=== PATIENT | female | born 1960 | race Caucasian/White ===

== ENCOUNTER 2017-07-17 11:37 | Outpatient (CLI) | payer BC ==
--- NOTE | 2017-07-17 12:51 | RAD ---
LEFT FOOT THREE VIEWS: History: Foot pain. Left great toe pain. FINDINGS: Prominent spurring from the posterior calcaneus and mild spurring from the plantar calcaneus. Tarsals otherwise unremarkable. Metatarsals and phalanges are intact. MTP joints are maintained. Mild degene rative change at the first MTP joint. The IP joints are unremarkable. IMPRESSION: No acute abnormality. Chronic findings as described. POS: [facility]
== END 2017-07-17 11:38 | disposition home or self-care (01) ==
LOC: RAD-FRANK 11:37
PROVIDERS: ATTEND Nurse Practitioner Family
DX: S99.922A Unspecified injury of left foot, initial encounter (principal)

== ENCOUNTER 2020-02-21 06:28 | Outpatient (CLI) | payer BC ==
[2020-02-21 11:46] LABS: Hemoglobin 13.7 g/dL (12.0-16.0); Mean Corpuscular HGB CONC 33.3 G/DL (32.0-36.0); Mean Platelet Volume 11.4 fl (7.4-10.4); Platelet Count 299 10x3/uL (130-400); RBC Distribution Width 13.4 % (11.5-14.5); Red Blood Cell (RBC) Count 4.28 10x6/uL (3.90-5.20); White Blood Cell (WBC) Count 5.7 10x3/uL (4.5-11.0)
[2020-02-21 12:33] LABS: Anion Gap 17 mmol/L (10-20); BUN (Urea Nitrogen) 9 mg/dL (9.8-20.1); Calc. Creatinine Clearance 0 mL/min (70-130); Calcium 9.3 mg/dL (7.8-10.44); Carbon Dioxide 26 mmol/L (22-29); Chloride 107 mmol/L (98-107); Glucose 91 mg/dL (70-105); Potassium 4.2 mmol/L (3.5-5.1); Sodium 146 mmol/L (136-145)
--- NOTE | 2020-02-21 16:12 | EKG ---
Test Reason : Blood Pressure : / mmHG Vent. Rate : 075 BPM Atrial Rate : 075 BPM P-R Int : 146 ms QRS Dur : 074 ms QT Int : 378 ms P-R-T Axes : 019 062 037 degrees QTc Int : 422 ms Normal sinus rhythm Low voltage QRS Borderline ECG No previous ECGs available Confirmed by DR. Herrera GOLD ([id number]) on 02/21/2020 4:11:41 PM Referred By: NATHALIA Confirmed By:DR. Herrera GOLD
[2020-02-21 17:12] LABS: SARS-CoV-2 MS2 Positive; SARS-CoV-2 N Gene Negative; SARS-CoV-2 S Gene Negative; SARS-CoV-2 by NAA Not Detected (NotDetected); SARS-CoV-2 orf1ab Negative
== END 2020-02-21 06:29 | disposition home or self-care (01) ==
LOC: LABBT 06:28
PROVIDERS: ATTEND Neurological Surgery
DX: Z01.818 Encounter for other preprocedural examination (principal); Z20.828 Contact with and (suspected) exposure to other viral communicable diseases; M54.16 Radiculopathy, lumbar region
CPT/HCPCS: 80048; 85027; 87635; 93005; 93010; U0003

== ENCOUNTER 2020-02-26 06:04 | Observation (INO) | payer BC ==
[2020-02-25 13:07] VITALS: BMI 35.4
[2020-02-26] MEDS ORDERED: Levofloxacin 500 mg/D5W 100 ml Premix Bag ONE (07:01)
[2020-02-26] MEDS ORDERED: Clindamycin/D5W 900 mg/50 ml Premix Bag ONE ×2 (07:01→15:09)
[2020-02-26] MEDS ORDERED: Midazolam HCl 2 mg/2 ml Vial ONE (07:08)
[2020-02-26] MEDS ORDERED: HYDROmorphone 2 MG/ML VIAL ONE (07:09)
[2020-02-26] MEDS ORDERED: Famotidine/PF 20 mg/2ml Vial ONE (07:09)
[2020-02-26] MEDS ORDERED: Scopolamine 1.5 mg/72 hour Patch ONE (07:10)
[2020-02-26] MEDS ORDERED: Ondansetron PF 4 MG/2 ML Vial ONE (09:05)
[2020-02-26] MEDS ORDERED: PROPOFOL 200 MG/20 ML VIAL ONE (09:05)
[2020-02-26] MEDS ORDERED: Rocuronium Bromide 10 MG/ML (10ML VIAL) ONE (09:05)
[2020-02-26] MEDS ORDERED: Dexamethasone 20 MG/5 ML VIAL ONE (09:05)
[2020-02-26] MEDS ORDERED: PHENYLEPHRINE-NS 100 MCG/ML 10 ML SYRINGE ONE (09:05)
--- NOTE | 2020-02-26 09:08 | OP ---
DATE OF PROCEDURE: 02/26/2020 EPITAXIAL REACTOR TECHNICIAN: Vy Amos PA-C PROCEDURES PERFORMED: L1-L2 laminectomy; L4-L5 laminectomy, posterolateral arthrodesis, pedicle screw instrumentation, demineralized bone matrix, local morselized autograft, L4-L5. DESCRIPTION OF PROCEDURE: The patient was brought to the operating room and intubated. She was rolled in a prone position on gel-filled chest rolls. An incision was made exposing L1 through L5 and the level was confirmed by x-ray. We performed complete L2 and inferior L1 laminectomies completely decompressing the neural elements at these levels. We next performed complete L5 and inferior L4 laminectomies, completely decompressing the neural elements at L4-L5. We next placed pedicle screws at right L4 and right L5 using lateral fluoroscopic guidance. The conner was secured by screws, connected by nuts, which were final tightened. The wound was then extensively irrigated and MAC hemostasis was secured. A combination of demineralized bone matrix, local morselized autograft was laid over the lamina on posterolateral surfaces for the purpose of arthrodesis. Vancomycin powder was applied and the wound was then closed in anatomic layers. Job ID: [id number]
[2020-02-26] MEDS ORDERED: Fentanyl 100 MCG/2 ML VIAL ONE (09:43)
[2020-02-26] MEDS ORDERED: tiZANidine HCl 4 MG TAB PO PRN (09:45)
[2020-02-26] MEDS ORDERED: diphenhydrAMINE 25 MG CAP PO PRN (09:45)
[2020-02-26] MEDS ORDERED: Promethazine HCl 12.5 MG SUPP PR PRN (09:45)
[2020-02-26] MEDS ORDERED: Mag-Al 1200 mg/1200 mg/30 ML UDCUP PO PRN (09:45)
[2020-02-26] MEDS ORDERED: Milk Of Magnesia 30 ML UDCUP PO PRN (09:45)
[2020-02-26] MEDS ORDERED: HYDROcodone/Acetaminophen 10/325 mg Tablet PO PRN ×2 (09:45)
[2020-02-26] MEDS ORDERED: Morphine 2 MG/ML VIAL SLOW IVP PRN (09:45)
[2020-02-26] MEDS ORDERED: Morphine 4 MG/ML VIAL SLOW IVP PRN (09:45)
[2020-02-26] MEDS ORDERED: Promethazine HCl 25 MG/ML VIAL IM PRN (09:45)
[2020-02-26] MEDS ORDERED: traMADol HCl 50 MG TAB PO PRN ×2 (09:45)
[2020-02-26] MEDS ORDERED: Promethazine 25 MG TAB PO PRN (09:45)
[2020-02-26] MEDS ORDERED: diphenhydrAMINE 50 MG/ML VIAL IVP PRN (09:45)
[2020-02-26] MEDS ORDERED: Ondansetron PF 4 MG/2 ML Vial SLOW IVP PRN (09:46)
[2020-02-26] MEDS ORDERED: Non-Formulary Medication 1 EACH PO PRN (09:56)
[2020-02-26] MEDS ORDERED: Morphine Sulfate 2 MG/ML SYRINGE SLOW IVP PRN (10:00)
[2020-02-26] MEDS ORDERED: PACU-Morphine 4MG/ML VIAL SLOW IVP PRN (10:00)
[2020-02-26] MEDS ORDERED: HYDROmorphone 2 MG/ML VIAL SLOW IVP PRN (10:00)
[2020-02-26] MEDS ORDERED: Ondansetron HCl/PF 4 MG/2 ML Vial IVP PRN (10:00)
[2020-02-26] MEDS ORDERED: Promethazine HCl 25 MG/ML VIAL IM/IV PRN (10:00)
[2020-02-26] MEDS ORDERED: HumaLOG 300 UNITS/3 ML VIAL ONE (13:24)
[2020-02-26] MEDS ORDERED: HumuLIN 70/30 (300 UNITS/3 ML VIAL) SC SCH ×2 (13:30→19:45)
[2020-02-26] MEDS: Sodium Chloride 0.9% 1,000 ML IV SCH ×2 (19:04→23:38)
[2020-02-26] MEDS: Clindamycin/D5W 900 MG in Premix Bag 1 BAG IVPB SCH ×2 (19:04→22:49)
[2020-02-26] MEDS ORDERED: HumaLOG 300 UNITS/3 ML VIAL SC PRN (19:39)
[2020-02-26] MEDS: HumaLOG 300 UNITS/3 ML VIAL SC PRN (19:55)
[2020-02-26] MEDS ORDERED: Rosuvastatin 20 MG TAB PO SCH (21:00)
[2020-02-26] MEDS: Losartan 25 MG TAB PO SCH (21:05)
[2020-02-27] MEDS: HumaLOG 300 UNITS/3 ML VIAL SC PRN (06:03)
[2020-02-27] MEDS: Clindamycin/D5W 900 MG in Premix Bag 1 BAG IVPB SCH ×3 (06:04→23:50)
--- NOTE | 2020-02-27 07:39 | PRG ---
DATE OF SERVICE: 02/27/2020 SUBJECTIVE: The patient is postoperative day #1, status post L1-L2 laminectomy, L4-L5 fusion. Following the surgery, she was transitioned to the Med/Surg floor, where she has had minimal pain. She has collar, eating a regular diet, and she is voiding appropriately. She is ambulating easily in the halls. She did have a WENDY drain placed intraoperatively with fairly high output, 160 last night. She is otherwise doing quite well. OBJECTIVE: On exam this morning, vital signs are stable, afebrile. She has free active range of motion of all extremities. No focal motor weakness. Incision is clean, dry, and intact. PLAN: We will continue to have her work with PT and mobilize while here inpatient. Monitor her WENDY output, and I anticipate this will need to stay an additional day. I anticipate removal at home tomorrow. Job ID: [id number]
[2020-02-27] MEDS ORDERED: HumuLIN 70/30 (300 UNITS/3 ML VIAL) SC SCH ×3 (08:00→17:00)
[2020-02-27] MEDS: Calcium Carbonate 600 MG + Vit D TAB PO SCH (08:35)
[2020-02-27] MEDS: Multivitamin W/ Minerals 1 TAB PO SCH (08:35)
[2020-02-27] MEDS: Ubidecarenone 50 MG CAP PO SCH (08:35)
[2020-02-27] MEDS: Calcium Polycarbophil 625 MG TAB PO SCH (08:36)
[2020-02-27] MEDS: Thiamine 100 MG TAB PO SCH (08:36)
[2020-02-27] MEDS: Rosuvastatin 20 MG TAB PO SCH (08:36)
[2020-02-27] MEDS: Cyanocobalamin (Vitamin B-12) 1,000 MCG TAB PO SCH (08:36)
[2020-02-27] MEDS: Cholecalciferol 1,000 UNITS (25 MCG) TAB PO SCH (08:36)
[2020-02-27] MEDS ORDERED: Ubidecarenone 50 MG CAP PO SCH (09:00)
[2020-02-27] MEDS ORDERED: Vitamin E 400 UNITS CAP PO SCH (09:00)
[2020-02-27] MEDS ORDERED: Thiamine 100 MG TAB PO SCH (09:00)
[2020-02-27] MEDS: Vitamin E 400 UNITS CAP PO SCH (09:03)
[2020-02-27 11:20] LABS: #Lymphocytes 1.5 thou/uL (1.20-3.40); #Monocytes 0.8 thou/uL (0.11-0.59); #Neutrophils 6.4 thou/uL (1.40-6.50); %Basophils 0.5 % (0.0-1.0); %Eosinophils 0.2 % (0.0-10.0); %Lymphocytes 16.6 % (21.0-51.0); %Monocytes 8.9 % (0.0-10.0); %Neutrophils 73.7 % (42.0-75.0); Hemoglobin 12.6 g/dL (12.0-16.0); Mean Corpuscular HGB CONC 32.9 g/dL (32.0-36.0); Mean Corpuscular Hemoglobin 32.8 pg (27.0-31.0); Mean Corpuscular Volume 99.8 fL (78.0-98.0); Mean Platelet Volume 8.7 fL (7.4-10.4); Platelet Count 267 thou/uL (130-400); RBC Distribution Width 12.3 % (11.5-14.5); Red Blood Cell (RBC) Count 3.85 mill/uL (4.20-5.40); White Blood Cell (WBC) Count 8.7 thou/uL (4.8-10.8)
[2020-02-27] MEDS: HumuLIN 70/30 (300 UNITS/3 ML VIAL) SC SCH (11:39)
[2020-02-27 11:40] LABS: Anion Gap 15 mmol/L (10-20); BUN (Urea Nitrogen) 17 mg/dL (9.8-20.1); Calc. Creatinine Clearance 78 mL/min (70-130); Carbon Dioxide 28 mmol/L (22-29); Chloride 101 mmol/L (98-107); Glucose 150 mg/dL (70-105); Potassium 3.5 mmol/L (3.5-5.1); Sodium 140 mmol/L (136-145)
[2020-02-27] MEDS: Sodium Chloride 0.9% 1,000 ML IV SCH ×2 (11:40→18:14)
--- NOTE | 2020-02-27 17:06 | CON ---
DATE OF CONSULTATION: PRIMARY CARE PHYSICIAN: Miryam. HISTORY OF PRESENT ILLNESS: The patient is a 59-year-old female with past medical history significant for hyperlipidemia and diabetes type 2. She presented for an elective procedure of laminectomy and fusion. The patient states that her health conditions are well controlled and she is having no complications from them currently. She is currently postop day 1. PAST MEDICAL HISTORY: Hyperlipidemia, diabetes mellitus type 2, hypertension. PAST SURGICAL HISTORY: Cataract surgery, and breast reduction, hysterectomy, colonoscopy, gastric sleeve. ALLERGIES: PENICILLINS AND SULFA. MEDICATIONS: 1. Insulin 75/25 8 units in the morning, 8 units at lunch, and 7 to 8 units at night. 2. CoQ10. 3. Vitamin B12. 4. Vitamin E. 5. Vitamin D3. 6. Calcium. 7. Thiamin. 8. Omeprazole. 9. Aspirin. 10. Multivitamin. 11. Rosuvastatin. 12. Losartan potassium. 13. Tizanidine. SOCIAL HISTORY: The patient lives at home with her . She denies any alcohol, drug, or tobacco use. FAMILY HISTORY: Not pertinent to this stay. REVIEW OF SYSTEMS: All other review of systems negative listed in the HPI. PHYSICAL EXAMINATION: VITAL SIGNS: Temperature 98.4, pulse 87, respiratory rate 16, O2 saturation 95%, blood pressure 123/69. GENERAL: No acute distress. HEENT: Head, atraumatic and normocephalic. NECK: Supple. RESPIRATORY: Clear to auscultation bilaterally. No rhonchi, no wheezes, no rales. CARDIOVASCULAR: Regular rate and rhythm. No murmurs, no rubs, no gallops. ABDOMEN: Soft, nontender, nondistended. EXTREMITIES: No edema. PSYCH: Alert and oriented x3. LABORATORY DATA: White blood cells 8.7, hemoglobin 12.6, hematocrit 38.4. Sodium 140, potassium 3.5, GFR 53. EKG sinus rhythm 75 beats per minute. IMPRESSION AND PLAN: 1. Patient with slight WILLIE today, will order 1 L NS and recheck labs in am. The patient with history of diabetes type 2, hyperlipidemia, hypertension. Home medications have already been restarted by Surgery. Continue check vital signs q.4 hours. We will monitor her labs q.a.m. while she is here. The patient hopes to be going home tomorrow. 2. Deep venous thrombosis prophylaxis in place with SCDs. The patient wishes to be a full code. Her surrogate decision maker is her , Chong. We will continue to follow the patient until her discharge. Job ID: [id number] [facility]
[2020-02-27] MEDS: Losartan 25 MG TAB PO SCH (20:14)
[2020-02-27] MEDS ORDERED: FLU VACC QS2020-21(6MOS UP)/PF 60 MCG/0.5 ML SYRINGE IM ONE (21:00)
[2020-02-28 05:22] LABS: #Lymphocytes 1.2 thou/uL (1.20-3.40); #Monocytes 0.6 thou/uL (0.11-0.59); %Basophils 0.6 % (0.0-1.0); %Eosinophils 0.3 % (0.0-10.0); %Lymphocytes 18.2 % (21.0-51.0); %Monocytes 8.7 % (0.0-10.0); %Neutrophils 72.2 % (42.0-75.0); Hemoglobin 11.3 g/dL (12.0-16.0); Mean Corpuscular HGB CONC 32.8 g/dL (32.0-36.0); Mean Corpuscular Hemoglobin 32.6 pg (27.0-31.0); Mean Corpuscular Volume 99.7 fL (78.0-98.0); Mean Platelet Volume 8.6 fL (7.4-10.4); Platelet Count 214 thou/uL (130-400); RBC Distribution Width 12.5 % (11.5-14.5); Red Blood Cell (RBC) Count 3.46 mill/uL (4.20-5.40); White Blood Cell (WBC) Count 6.9 thou/uL (4.8-10.8)
[2020-02-28 05:43] LABS: Anion Gap 18 mmol/L (10-20); BUN (Urea Nitrogen) 17 mg/dL (9.8-20.1); Calc. Creatinine Clearance 86 mL/min (70-130); Calcium 8.1 mg/dL (7.8-10.44); Carbon Dioxide 20 mmol/L (22-29); Chloride 103 mmol/L (98-107); Glucose 403 mg/dL (70-105); Potassium 4.3 mmol/L (3.5-5.1); Sodium 137 mmol/L (136-145)
[2020-02-28] MEDS: Clindamycin/D5W 900 MG in Premix Bag 1 BAG IVPB SCH (06:11)
[2020-02-28] MEDS ORDERED: HumuLIN 70/30 (300 UNITS/3 ML VIAL) SC SCH (08:00)
[2020-02-28] MEDS: Cholecalciferol 1,000 UNITS (25 MCG) TAB PO SCH (08:25)
[2020-02-28] MEDS: Cyanocobalamin (Vitamin B-12) 1,000 MCG TAB PO SCH (08:26)
[2020-02-28] MEDS: Ubidecarenone 50 MG CAP PO SCH (08:26)
[2020-02-28] MEDS: Calcium Polycarbophil 625 MG TAB PO SCH (08:27)
[2020-02-28] MEDS: Calcium Carbonate 600 MG + Vit D TAB PO SCH (08:27)
[2020-02-28] MEDS: Thiamine 100 MG TAB PO SCH (08:27)
[2020-02-28] MEDS: Multivitamin W/ Minerals 1 TAB PO SCH (08:27)
[2020-02-28] MEDS: Rosuvastatin 20 MG TAB PO SCH (08:27)
[2020-02-28] MEDS: Vitamin E 400 UNITS CAP PO SCH (08:35)
--- NOTE | 2020-02-28 09:02 | DIS ---
DATE OF ADMISSION: 02/26/2020 DATE OF DISCHARGE: 02/28/2020 PROCEDURES: L1-L2 laminectomy, L4-L5 decompression and fusion. DISCHARGE SUMMARY: The patient is a 59-year-old female, recently evaluated in our office for progressive back and claudicatory leg pain. She was found to have significant stenosis at L1-2 as well as L4-L5 with spondylolisthesis at L4-L5 as well. She underwent L1-L2 laminectomy and L4-L5 decompression and fusion on 02/26/2020. Following the surgery, she was transitioned to the Med/Surg floor, where her pain has been well controlled with p.o. medications, she is tolerating a regular diet, and she is voiding appropriately. Her WENDY output trended downward and was removed on postoperative day #2. The patient was dismissed to home and I have discussed home care precautions and scripts for Tylenol No. 3, Zanaflex, and clindamycin were sent to her pharmacy. I will follow up with the patient in 2 weeks. [facility] check prior to discharge. Job ID: [id number]
--- NOTE | 2020-02-28 09:48 | PDOC.HOSPP ---
- Subjective Encounter Date: 02/28/20 Encounter Time: 08:00 Subjective: No overnight events. Patient reports she is doing well post-operatively. Has been up walking with nursing with no complaints. No BM, but is passing flatus. Denies abdominal pain, chest pain, SOB. No new neurologic symptoms. Chart and medications reviewed. - Objective Vital Signs & Weight: Vital Signs (12 hours) Temp Pulse Resp BP Pulse Ox 02/28/20 07:05 98.4 F 86 14 158/87 H 93 L 02/28/20 04:07 99.2 F 90 16 148/75 H 92 L 02/28/20 00:19 98.9 F 90 16 161/75 H 92 L Weight Weight 194 lb I&O: 02/27/20 02/28/20 02/29/20 06:59 06:59 06:59 Intake Total 770 2925 Output Total 150 170 50 Balance 620 2755 -50 Result Diagrams: 02/28/20 05:08 02/28/20 05:08 Additional Labs: Accuchecks 02/27/20 02/27/20 02/27/20 20:44 16:16 15:41 POC Glucose 197 H 111 H 48 L* 02/27/20 02/26/20 02/26/20 10:50 18:24 13:11 POC Glucose 162 H 338 H 247 H Hospitalist ROS - Review of Systems Constitutional: denies: fever, chills, sweats Eyes: denies: vision change Respiratory: denies: cough, dry, shortness of breath Cardiovascular: denies: chest pain, palpitations, light headedness Gastrointestinal: reports: constipation. denies: nausea, vomiting, abdominal pain, diarrhea, melena, hematochezia Genitourinary: denies: dysuria Skin: denies: rash, lesions Neurological: denies: weakness, numbness, seizures - Medication Medications: Active Medications Generic Name Dose Route Start Last Admin Trade Name Freq PRN Reason Stop Dose Admin Calcium Polycarbophil 625 mg 02/27/20 09:00 02/28/20 08:27 Calcium Polycarbophil 625 Mg Tab PO 625 mg DAILY SAMIRA Administration Calcium/Vitamin D 1 tab 02/27/20 09:00 02/28/20 08:27 Calcium Carbonate 600 Mg + Vit D Tab PO 1 tab DAILY SAMIRA Administration Cholecalciferol 2,000 units 02/27/20 09:00 02/28/20 08:25 Cholecalciferol 1,000 Units (25 Mcg) Tab PO 2,000 units DAILY SAMIRA Administration Coenzyme Q10 200 mg 02/27/20 09:00 02/28/20 08:26 Ubidecarenone 50 Mg Cap PO 200 mg DAILY SAMIRA Administration Cyanocobalamin 1,000 mcg 02/27/20 09:00 02/28/20 08:26 Cyanocobalamin (Vitamin B-12) 1,000 Mcg Tab PO 1,000 mcg DAILY SAMIRA Administration Sodium Chloride 1,000 mls @ 75 mls/hr 02/26/20 09:45 02/27/20 18:14 Normal Saline 0.9% IV 1,000 mls .[id number] SAMIRA Administration Clindamycin Phosphate/Dextrose 50 mls @ 100 mls/hr 02/26/20 15:00 02/28/20 06:11 900 mg/ Device IVPB 50 mls 0700,1500,2300 SAMIRA Administration Insulin Human Isoph/Insulin Regular 8 units 02/27/20 12:00 02/27/20 11:39 Humulin 70/30 (300 Units/3 Ml Vial) SC 8 unit 1200 SAMIRA Administration Insulin Human Isoph/Insulin Regular 13 units 02/27/20 17:00 02/27/20 17:27 Humulin 70/30 (300 Units/3 Ml Vial) SC Not Given Q- SAMIRA Insulin Human Isoph/Insulin Regular 8 units 02/28/20 08:00 02/28/20 08:36 Humulin 70/30 (300 Units/3 Ml Vial) SC 8 unit QAM[facility] Administration Insulin Human Lispro 0 units 02/26/20 19:39 02/27/20 06:03 Humalog 300 Units/3 Ml Vial SC 6 unit .MODERATE SLIDING SC PRN Administration Moderate Correctional Scale Iron/Minerals/Multivitamins 1 tab 02/27/20 09:00 02/28/20 08:27 Multivitamin W/ Minerals 1 Tab PO 1 tab DAILY SAMIRA Administration Losartan Potassium 100 mg 02/26/20 21:00 02/27/20 20:14 Losartan 25 Mg Tab PO 100 mg HS SAMIRA Administration Pantoprazole Sodium 40 mg 02/27/20 09:00 02/28/20 08:27 Pantoprazole 40 Mg Tab PO 40 mg DAILY SAMIRA Administration Rosuvastatin Calcium 20 mg 02/27/20 09:00 02/28/20 08:27 Rosuvastatin 20 Mg Tab PO 20 mg DAILY SAMIRA Administration Sodium Chloride 10 ml 02/26/20 21:00 02/27/20 20:14 Flush - Normal Saline 10 Ml Syringe IVF Not Given Q12HR SAMIRA Thiamine HCl 100 mg 02/27/20 09:00 02/28/20 08:27 Thiamine 100 Mg Tab PO 100 mg DAILY SAMIRA Administration Vitamin E 400 units 02/27/20 09:00 02/28/20 08:35 Vitamin E 400 Units Cap PO 400 units DAILY SAMIRA Administration - Exam General Appearance: NAD, awake alert Eye: PERRL, anicteric sclera ENT: normocephalic atraumatic, no oropharyngeal lesions, moist mucosa Neck: supple, symmetric, no JVD, no thyromegaly, no lymphadenopathy, no carotid bruit Heart: RRR, no murmur, no gallops, no rubs, normal peripheral pulses Respiratory: CTAB, no wheezes, no rales, no ronchi, normal chest expansion, no tachypnea, normal percussion Gastrointestinal: soft, non-tender, non-distended, normal bowel sounds, no palpable masses, no hepatomegaly, no splenomegaly, no bruit Extremities: no cyanosis, no clubbing, no edema Skin: normal turgor, no lesions, no rashes Neurological: normal sensation to touch, no weakness, no focal deficits Musculoskeletal: normal tone, normal strength, no muscle wasting Psychiatric: normal affect, normal behavior, A&O x 3 Hosp A/P - Plan Patient post-op day #[address] Santos. Patient doing well from both a surgical and medical perspective. Patient had mild WILLIE, which resolved with fluids. Her chronic conditions of HTN, HLD, and T2DM have all been well controlled during hospitalization. Patient is medically ready for discharge from a medicine standpoint.
[2020-02-28 11:27] VITALS: BP 155/81; TEMP 98.3
[2020-02-28] MEDS: HumuLIN 70/30 (300 UNITS/3 ML VIAL) SC SCH (11:34)
[2020-02-28] MEDS: HumaLOG 300 UNITS/3 ML VIAL SC PRN (11:40)
== END 2020-02-28 13:10 | disposition home or self-care (01) ==
LOC: SDC 06:04 → SURG A 18:16
PROVIDERS: ADMIT Neurological Surgery; ATTEND Neurological Surgery
PROC: 0SG00AJ Fusion of Lumbar Vertebral Joint with Interbody Fusion Device, Posterior Approach, Anterior Column, Open Approach (ICD-10-PCS; principal; 2020-02-28)
PROC: 00NY0ZZ Release Lumbar Spinal Cord, Open Approach (ICD-10-PCS; 2020-02-28)
DX: M48.062 Spinal stenosis, lumbar region with neurogenic claudication (principal); M43.16 Spondylolisthesis, lumbar region; M54.16 Radiculopathy, lumbar region; E11.9 Type 2 diabetes mellitus without complications; E78.5 Hyperlipidemia, unspecified; I10 Essential (primary) hypertension; N17.9 Acute kidney failure, unspecified; E78.00 Pure hypercholesterolemia, unspecified; G43.909 Migraine, unspecified, not intractable, without status migrainosus; Z79.4 Long term (current) use of insulin; Z79.82 Long term (current) use of aspirin; Z79.899 Other long term (current) drug therapy
CPT/HCPCS: 36415; 36416; 76000; 80048; 85025; 96365; 96366; C1713; C1768; G0378; J0690; J1100; J1170; J1815; J1956; J2250; J2405; J2704; J3010; J3370; J3490; S0028

== ENCOUNTER 2020-03-17 10:37 | Outpatient (CLI) | payer OTHER ==
--- NOTE | 2020-03-17 10:59 | RAD ---
Lumbar spine 2 views: 03/17/2020 COMPARISON: 09/27/2016 HISTORY: Lumbar radiculopathy, prior lumbar spine surgery FINDINGS: There is prominent lateral osteophyte formation throughout the lumbar spine, left greater t bianchi right, most prominent within the upper and mid lumbar spine. There are pedicle screws on the right at the L4 and L5 levels with a vertically oriented interlocking conner. Anterolisthesis at L4-5 no ashli measuring 9 mm. Prominent disc space narrowing and degenerative endplate change with anterior osteophyte formation noted at T12-L1, L1-2, L2-3, L3-4, and L4-5. IMPRESSION: Postoperative and degenerative change within the lumbar spine as detailed above.
== END 2020-03-17 10:38 | disposition home or self-care (01) ==
LOC: TBSIIMAG 10:37
PROVIDERS: ATTEND Neurological Surgery
DX: M47.26 Other spondylosis with radiculopathy, lumbar region (principal); M47.815 Spondylosis without myelopathy or radiculopathy, thoracolumbar region; Z98.890 Other specified postprocedural states
CPT/HCPCS: 72100

== ENCOUNTER 2020-04-22 16:01 | Outpatient (CLI) | payer BC ==
--- NOTE | 2020-04-22 16:13 | RAD ---
Exam: 2 views lumbar spine COMPARISON: 03/17/2020 HISTORY: Previous lumbar fusion. Spondylolisthesis. FINDINGS: Redemonstration of 5 lumbar type vertebra. Stable degenerative disc disease with loss of di sc space height, osteophyte formation and sclerosis. Redemonstration of unilateral right-sided transpedicular screw at L4 and L5. Associated vertical stabilization conner. No perihardware lucency or fracture of the hardware. There continues to be anterolisthesis of L4 upon L5 measuring 0.6 cm. Laminectomy defect at L2, L3 is noted Visualized sacrum and bony pelvis are intact IMPRESSION: Postoperative and degenerative changes of the lumbar spine as detailed above.
== END 2020-04-22 16:02 | disposition home or self-care (01) ==
LOC: TBSIIMAG 16:01
PROVIDERS: ATTEND Neurological Surgery
DX: M43.16 Spondylolisthesis, lumbar region (principal); M47.816 Spondylosis without myelopathy or radiculopathy, lumbar region; Z98.890 Other specified postprocedural states
CPT/HCPCS: 72100

== ENCOUNTER 2021-08-09 08:07 | Day surgery (SDC) | payer BC ==
[2021-08-05 12:12] VITALS: BMI 36.2
[2021-08-09] MEDS ORDERED: Midazolam HCl 2 mg/2 ml Vial ONE (09:33)
[2021-08-09] MEDS ORDERED: Ketamine 50 MG/ML (10ML VIAL) ONE (09:34)
[2021-08-09] MEDS ORDERED: fentaNYL Citrate/PF 100 MCG/2 ML SYRINGE ONE (09:34)
[2021-08-09] MEDS ORDERED: Bupivacaine 0.25% 10 ML VIAL ONE (09:37)
[2021-08-09] MEDS ORDERED: Isosulfan Blue 50 MG/5 ML VIAL ONE (09:37)
[2021-08-09] MEDS ORDERED: EPINEPHrine 1 MG/ML AMP ONE (09:37)
[2021-08-09] MEDS ORDERED: Levofloxacin 500 mg/D5W 100 ml Premix Bag ONE (10:02)
[2021-08-09] MEDS ORDERED: Lidocaine 1% PF 5 ML VIAL ONE (10:25)
[2021-08-09] MEDS ORDERED: Rocuronium Bromide 10 MG/ML (10ML VIAL) ONE (10:25)
[2021-08-09] MEDS ORDERED: PROPOFOL 200 MG/20 ML VIAL ONE (10:25)
[2021-08-09] MEDS ORDERED: PHENYLEPHRINE-NS 100 MCG/ML 10 ML SYRINGE ONE (10:25)
[2021-08-09] MEDS ORDERED: Dexamethasone 20 MG/5 ML VIAL ONE (10:25)
[2021-08-09] MEDS ORDERED: Glycopyrrolate 0.2 MG/ML 5 ML SYRINGE ONE (10:25)
[2021-08-09] MEDS ORDERED: Ondansetron PF 4 MG/2 ML Vial ONE (10:25)
[2021-08-09] MEDS ORDERED: HYDROcodone/Acetaminophen 5/325 mg Tablet ONE (14:46)
== END 2021-08-09 15:05 | disposition home or self-care (01) ==
LOC: NM 08:07
PROVIDERS: ATTEND Surgery
PROC: 0HTT0ZZ Resection of Right Breast, Open Approach (ICD-10-PCS; principal; 2021-08-09)
PROC: 07B50ZX Excision of Right Axillary Lymphatic, Open Approach, Diagnostic (ICD-10-PCS; principal; 2021-08-09)
DX: C50.811 Malignant neoplasm of overlapping sites of right female breast (principal); D24.1 Benign neoplasm of right breast; E10.9 Type 1 diabetes mellitus without complications; E78.00 Pure hypercholesterolemia, unspecified; Z17.1 Estrogen receptor negative status [ER-]; Z79.82 Long term (current) use of aspirin; Z79.83 Long term (current) use of bisphosphonates; Z79.899 Other long term (current) drug therapy; Z88.0 Allergy status to penicillin; Z88.2 Allergy status to sulfonamides; Z98.84 Bariatric surgery status
CPT/HCPCS: 36416; 78195; 88307; 88309; 88342; A9541; J0171; J1100; J1956; J2250; J2405; J2704; Q9968; S0020

== ENCOUNTER 2021-09-10 08:23 | Day surgery (SDC) | payer BC ==
[2021-09-07 15:56] VITALS: BMI 35.6
[2021-09-10] MEDS ORDERED: Insulin Regular 300 UNITS/3 ML VIAL ONE (09:13)
[2021-09-10] MEDS ORDERED: Bupivacaine 0.25% HCL 30 ML VIAL ONE (09:37)
[2021-09-10] MEDS ORDERED: Lidocaine 1% w/Epinephrine 1:100K 20 ML VIAL ONE (09:37)
[2021-09-10] MEDS ORDERED: Midazolam HCl 2 mg/2 ml Vial ONE (10:20)
[2021-09-10] MEDS ORDERED: fentaNYL Citrate/PF 100 MCG/2 ML SYRINGE ONE (10:21)
[2021-09-10] MEDS ORDERED: Famotidine/PF 20 mg/2ml Vial ONE (10:21)
[2021-09-10] MEDS ORDERED: PROPOFOL 60 ML ONE (10:21)
[2021-09-10] MEDS ORDERED: Sodium Chloride 0.9% 0 ML ONE (10:23)
[2021-09-10] MEDS ORDERED: CEFAZOLIN 2 GM VIAL ONE (10:23)
[2021-09-10] MEDS ORDERED: PHENYLEPHRINE-NS 100 MCG/ML 10 ML SYRINGE ONE (10:27)
[2021-09-10] MEDS ORDERED: Ondansetron PF 4 MG/2 ML Vial ONE (10:27)
[2021-09-10] MEDS ORDERED: PROPOFOL 200 MG/20 ML VIAL ONE (10:27)
[2021-09-10] MEDS ORDERED: Lidocaine 1% PF 5 ML VIAL ONE (10:27)
[2021-09-10] MEDS ORDERED: Levofloxacin 500 mg/D5W 100 ml Premix Bag ONE (10:32)
== END 2021-09-10 12:27 | disposition home or self-care (01) ==
LOC: SDC 08:23
PROVIDERS: ATTEND Surgery
PROC: 02HV33Z Insertion of Infusion Device into Superior Vena Cava, Percutaneous Approach (ICD-10-PCS; principal; 2021-09-10)
DX: C50.911 Malignant neoplasm of unspecified site of right female breast (principal); E10.9 Type 1 diabetes mellitus without complications; E78.00 Pure hypercholesterolemia, unspecified; Z88.0 Allergy status to penicillin; Z88.2 Allergy status to sulfonamides; Z79.4 Long term (current) use of insulin; Z79.82 Long term (current) use of aspirin; Z79.83 Long term (current) use of bisphosphonates; Z79.899 Other long term (current) drug therapy
CPT/HCPCS: 36416; 71045; C1788; J0690; J1642; J1815; J1956; J2250; J2405; J2704; J3490; S0020; S0028